=== PATIENT | male | born 1970 | race Hispanic/Latino ===

== ENCOUNTER → 2018-08-15 | Outpatient (CLI) | payer SELFPAY ==
--- NOTE | 2018-08-15 13:15 | Diagnostic Imaging Report ---
Exam: Abdominal film Clinical History: Kidney stone Comparison: None. DISCUSSION: 5 mm calculus projects over the lower pole of the right kidney. 3 mm calculus projects over the interpolar right kidney. No additional suspicious calcifications project over the renal shadows or expected ureteral courses. Multiple round pelvic calcifications likely reflect phleboliths. Bowel gas pattern is nonobstructive. Regional skeletal structures are intact. No mass effect or organomegaly. IMPRESSION: 3 and 5-mm right renal calculi as described above. Signed by: Dr. Campbell Scott M.D. on 08/15/2018 1:12 PM
== END ==
LOC: RAD 12:21
PROVIDERS: ATTEND Urology
DX: N20.0 Calculus of kidney (principal)
CPT/HCPCS: 74018